=== PATIENT | female | born 1955 | race Caucasian/White ===

== ENCOUNTER 2018-08-17 10:54 | Outpatient (CLI) | payer BC, SELFPAY ==
--- NOTE | 2018-08-17 10:47 | DI.RAD_ITS ---
SYMPTOM/DIAGNOSIS: RT SHOULDER PAIN RIGHT SHOULDER: 08/17 Three views were obtained. There are prominent hypertrophic changes of acromioclavicular and to a lesser degree glenohumeral joints. There is inferior acromial spurring. Small ossific or calcific densities are noted adjacent to the greater tuberosity of the humerus. No other significant soft tissue abnormalities seen. CONCLUSION: Degenerative changes as described above.
== END 2018-08-17 11:14 ==
PROVIDERS: PCP Family Medicine; Visit Provider Physician Assistant
DX: M25.511 Pain in right shoulder (principal); M19.011 Primary osteoarthritis, right shoulder
CPT/HCPCS: 73030

== ENCOUNTER 2018-09-01 01:09 | Outpatient (CLI) | payer BC, SELFPAY ==
[2018-09-03 06:25] LABS: Vitamin D 25 Total 25.3 ng/ml (30-100)
== END 2018-09-01 01:29 ==
PROVIDERS: PCP Family Medicine; Visit Provider Family Medicine
DX: E55.9 Vitamin D deficiency, unspecified (principal)
CPT/HCPCS: 36415; 82306

== ENCOUNTER 2019-03-19 09:33 | Outpatient (CLI) | payer BC, SELFPAY ==
--- NOTE | 2019-03-19 09:25 | DI.RAD_ITS ---
SYMPTOM/DIAGNOSIS: 1 YEAR F/U MARY ANN LEFT HIP: Comparison is made with 06 April 2018 There has been no change in the alignment of the left hip prosthesis. No abnormal bony lucencies are seen.
== END 2019-03-19 09:53 ==
PROVIDERS: PCP Family Medicine; Visit Provider Student in an Organized Health Care Education/Training Program
DX: Z96.642 Presence of left artificial hip joint (principal); M16.12 Unilateral primary osteoarthritis, left hip
CPT/HCPCS: 73502

== ENCOUNTER 2019-12-02 10:17 | Outpatient (CLI) | payer BC, SELFPAY ==
--- NOTE | 2019-12-02 10:00 | DI.RAD_ITS ---
EXAM: XR SHOULDER RT COMPLETE 2+V CLINICAL HISTORY: right shoulder injury. TECHNIQUE: 2D digital imaging was performed. COMPARISON: XR shoulder RT complete 2+V from 08/17/2018 FINDINGS: BONES: No acute fracture is present. No bony destructive lesion is seen. There is a large spur arisin g from the inferior surface of the acromion. JOINTS: No dislocation present. There are hypertrophic changes seen at the acromioclavicular joint. SOFT TISSUE: Normal. IMPRESSION: Degenerative changes of the right shoulder. DATA REPOSITORY: RADIATION DOSE DELIVERED:
== END 2019-12-02 10:37 ==
PROVIDERS: PCP Family Medicine; Visit Provider Physician Assistant
DX: M25.511 Pain in right shoulder (principal); S49.91XA Unspecified injury of right shoulder and upper arm, initial encounter; M19.011 Primary osteoarthritis, right shoulder
CPT/HCPCS: 73030